=== PATIENT | male | born 1945 | race Caucasian/White ===

== ENCOUNTER 2023-11-20 11:45 | Outpatient (CLI) | payer MEDICAID, MEDICARE ==
[~2023-11-20] VITALS: Ht 170.2 cm; Wt 68.0 kg
[2023-11-20 12:15] VITALS: PULSE 61; RESP 14; O2SAT 95
[2023-11-20 12:37] VITALS: PULSE 66; RESP 15
[2023-11-20] MEDS: albuterol 2.5 MG/3 ML nebule NEB ONE (12:37)
== END 2023-11-20 23:59 | disposition home or self-care (01) ==
LOC: RT 11:45
PROVIDERS: ATTEND Physician Assistant Medical
DX: J45.909 Unspecified asthma, uncomplicated (principal)
CPT/HCPCS: 94060; 94760; Z7610